=== PATIENT | male | born 1955 | race Caucasian/White ===

== ENCOUNTER 2018-02-24 15:20 | Outpatient (REF) | payer OTHER, SELFPAY ==
[2018-02-24 19:59] LABS: ALT 35 U/L (12-78); Anion Gap 7.2 mmol/L (3-11); BUN 12 mg/dL (7-18); CO2 29.8 mmol/L (21.0-32.0); Calcium 8.9 mg/dL (8.5-10.1); Chloride 104 mmol/L (98-107); Glucose 137 mg/dL (70-100); LDL CHOLESTEROL 66 mg/dL (<100); Potassium 3.6 mmol/L (3.5-5.1); Sodium 141 mmol/L (136-145)
== END 2018-02-24 15:21 ==
LOC: NCHCN 15:20
PROVIDERS: PCP Internal Medicine; Visit Provider Internal Medicine
DX: R55 Syncope and collapse (principal); M17.9 Osteoarthritis of knee, unspecified; G89.29 Other chronic pain
CPT/HCPCS: 80048; 83721; 84460

== ENCOUNTER 2019-02-16 15:50 | Outpatient (REF) | payer OTHER, SELFPAY ==
[2019-02-16 20:41] LABS: ALT 29 U/L (12-78); Anion Gap 7.9 mmol/L (3-11); BUN 18 mg/dL (7-18); CO2 31.1 mmol/L (21.0-32.0); CREATININE 1.17 mg/dL (0.70-1.30); Calcium 8.9 mg/dL (8.5-10.1); Chloride 103 mmol/L (98-107); Glucose 100 mg/dL (70-100); LDL CHOLESTEROL 123 mg/dL (<100); Potassium 3.9 mmol/L (3.5-5.1); Sodium 142 mmol/L (136-145)
== END 2019-02-16 16:10 ==
LOC: NCHCN 15:50
PROVIDERS: PCP Internal Medicine; Visit Provider Internal Medicine
DX: E78.5 Hyperlipidemia, unspecified (principal); I10 Essential (primary) hypertension; F43.29 Adjustment disorder with other symptoms; G89.29 Other chronic pain
CPT/HCPCS: 80048; 83721; 84460